=== PATIENT | male | born 1965 | race Caucasian/White ===

== ENCOUNTER 2017-05-19 11:45 | Inpatient (IN) | payer OTHER ==
[2017-05-18 10:54] VITALS: BP 152/101
[2017-05-18 11:07] LABS: CREATININE 1.2 mg/dL (0.5-1.5); POTASSIUM 4.4 mmol/L (3.5-5.1)
[2017-05-18 11:08] LABS: BASOPHILS % (AUTO) 0.8 % (0.0-5.0); EOSINOPHILS % (AUTO) 1.3 % (0.0-8.0); HEMATOCRIT 47.6 % (42-54); LYMPHOCYTES % (AUTO) 20.8 % (21.0-51.0); MEAN CORPUSCULAR HGB CONC 34.8 g/dL (32.0-36.0); MEAN CORPUSCULAR VOLUME 83.2 fL (79-99); MONOCYTES % (AUTO) 3.3 % (3.0-13.0); NEUTROPHILS % (AUTO) 73.8 % (40.0-77.0); NUCLEATED RED BLOOD CELLS 0.1 % (0.0-0.19); PLATELET COUNT (AUTO) 191 K/uL (130-400); RED BLOOD CELL COUNT(AUTO) 5.73 MIL/uL (4.50-6.20); RED CELL DISTRIBUTION WIDTH 13.2 % (11.0-15.5); WHITE BLOOD COUNT (AUTO) 12.7 K/uL (4.8-10.8)
[2017-05-18 11:45] LABS: INR 0.97 (0.85-1.15); PARTIAL THROMBOPLASTIN TIME 27.6 SEC (26.3-35.5); PROTHROMBIN TIME 10.2 SEC (9.6-11.6)
[~2017-05-19] VITALS: Ht 167.6 cm; Wt 100.0 kg
[2017-05-19] MEDS: CEFAZOLIN SODIUM 1 GM VIAL IVP SCH (09:45)
[~2017-05-19 11:45] MED LIST: CHLO500T3 PO; HYDR-4068 PO; IBUP-2070 PO; PREG75 PO; RANI150C4 PO; XALA2.5OS OD
[2017-05-20] MEDS: CEFAZOLIN SODIUM 1 GM VIAL IVP SCH (09:45)
[2017-05-21] MEDS: CEFAZOLIN SODIUM 1 GM VIAL IVP SCH (09:45)
[2017-05-22] VITALS (22 sets, daily range): BP systolic 98–156; BP diastolic 54–106
[2017-05-22] MEDS ORDERED: LACTATED RINGERS 1000ML 1,000 ML IV ONE (06:48)
[2017-05-22] MEDS ORDERED: PROPOFOL 10 MG/ML 20ML VIAL IV ONE (06:49)
[2017-05-22] MEDS ORDERED: FENTANYL CITRATE PF 50 MCG/1 ML 5ML AMP IV ONE (06:51)
[2017-05-22] MEDS ORDERED: MIDAZOLAM HCL 1 MG/ML 2ML VIAL ONE (06:51)
[2017-05-22] MEDS ORDERED: BACITRACIN 50,000 UNIT VIAL ONE (06:55)
[2017-05-22] MEDS ORDERED: TOBRAMYCIN SULFATE 40MG/1ML VIAL ONE (06:55)
[2017-05-22] MEDS ORDERED: THROMBIN-JMI 20000 UNIT KIT TP ONE (06:56)
[2017-05-22] MEDS ORDERED: VANCOMYCIN HCL 1 GM VIAL ONE (06:56)
[2017-05-22] MEDS ORDERED: BUPIVACAINE/PF 0.25% 30ML VIAL IJ ONE (06:56)
[2017-05-22] MEDS: CEFAZOLIN SODIUM 1 GM VIAL IVP SCH ×2 (07:34→09:45)
[2017-05-22] MEDS ORDERED: MICROFIBRILLAR COLLAGEN 1 GM PACKAGE TP ONE (07:57)
[2017-05-22] MEDS ORDERED: DEXAMETHASONE SOD PHOSPHATE 10MG/ML 1ML VIAL ONE (08:04)
[2017-05-22] MEDS ORDERED: ROCURONIUM BROMIDE 10MG/1ML 5ML VL ONE (08:04)
[2017-05-22] MEDS ORDERED: LIDOCAINE HCL MPF 1% 5ML VIAL ONE (08:04)
[2017-05-22] MEDS ORDERED: ONDANSETRON HCL 4 MG/2 ML VIAL ONE (08:04)
[2017-05-22] MEDS ORDERED: HYDROCODONE/ACETAMINOPHEN 10/325 MG TAB PO PRN (11:30)
[2017-05-22] MEDS ORDERED: CHLORZOXAZONE 500 MG PO SCH (14:00)
[2017-05-22] MEDS ORDERED: LATANOPROST 2.5 ML DROPS OD SCH (21:00)
[2017-05-22] MEDS ORDERED: PREGABALIN 75 MG CAPSULE PO SCH (21:00)
[2017-05-23] MEDS ORDERED: RANITIDINE HCL 15 MG/1 ML PO SCH (09:00)
== END 2017-05-22 18:00 | disposition home or self-care (01) | DRG 473 ==
LOC: EDSTATUS 11:45 → DAHIP 05-22 06:14 → 4AH 05-22 09:47
PROVIDERS: ADMIT Neurological Surgery; ATTEND Neurological Surgery
PROC: 0RG10K0 Fusion of Cervical Vertebral Joint with Nonautologous Tissue Substitute, Anterior Approach, Anterior Column, Open Approach (ICD-10-PCS; principal; 2017-05-22 07:30)
PROC: 0RB30ZZ Excision of Cervical Vertebral Disc, Open Approach (ICD-10-PCS; 2017-05-22 07:30)
PROC: BR111ZZ Fluoroscopy of Cervical Disc(s) using Low Osmolar Contrast (ICD-10-PCS; 2017-05-22 07:30)
DX: M50.122 Cervical disc disorder at C5-C6 level with radiculopathy (principal); M25.78 Osteophyte, vertebrae
CPT/HCPCS: 36415; 72020; 80048; 85025; 85610; 85730; A4218; J0690; J1030; J1040; J1100; J2250; J2405; J2704; J3010; J3260; J3370; J3490; J7120